=== PATIENT | female | born 1965 | race Caucasian/White ===

== ENCOUNTER 2019-06-16 15:26 | Outpatient (CLI) | payer BC ==
--- NOTE | 2019-07-14 11:30 | MMO ---
Bilateral MAMMO Bilat Screen [facility]. CLINICAL HISTORY: Patient is 54 years old and is seen for screening. The patient has no family history of breast cancer. The patient has no personal history of cancer. VIEWS: The views performed were: bilateral craniocaudal; bilateral craniocaudal with tomosynthesis; bilateral mediolateral oblique with tomosynthesis; and right mediolateral oblique. FILMS COMPARED: The present examination has been compared to a prior imaging study performed at [facility] on 05/21/2018. This study has been interpreted with the assistance of computer-aided detection. MAMMOGRAM FINDINGS: There are scattered fibroglandular densities. Benign calcifications are noted bilaterally. There are no suspicious masses, suspicious calcifications, or new areas of architectural distortion. IMPRESSION: THERE IS NO MAMMOGRAPHIC EVIDENCE OF MALIGNANCY. A ROUTINE FOLLOW-UP MAMMOGRAM IN 1 YEAR IS RECOMMENDED. THE RESULTS OF THIS EXAM WERE SENT TO THE PATIENT. ACR BI-RADS Category 2 - Benign finding MAMMOGRAPHY NOTE: 1. A negative mammogram report should not delay a biopsy if a dominant of clinically suspicious mass is present. 2. Approximately 10% to 15% of breast cancers are not detected by mammography. 3. Adenosis and dense breasts may obscure an underlying neoplasm. Reported by: ZIA PERES MD Electonically Signed: [id number]
== END 2019-06-16 15:27 | disposition home or self-care (01) ==
LOC: BICMAMMO 15:26
PROVIDERS: ATTEND Family Medicine
DX: Z12.31 Encounter for screening mammogram for malignant neoplasm of breast (principal)
CPT/HCPCS: 77063; 77067

== ENCOUNTER 2021-06-09 12:55 | Inpatient (IN) | payer BC ==
[2021-06-09 17:43] VITALS: BMI 43.8
[2021-06-09] MEDS ORDERED: Ondansetron PF 4 MG/2 ML Vial IVP PRN (18:15)
[2021-06-09] MEDS ORDERED: Lorazepam 2 MG/ML VIAL SLOW IVP PRN (18:15)
[2021-06-09] MEDS ORDERED: Ondansetron ODT 4 MG TAB PO PRN (18:15)
[2021-06-09] MEDS ORDERED: hydrALAZINE 20 MG/ML VIAL SLOW IVP PRN (18:15)
[2021-06-09] MEDS ORDERED: GoLYTELY 4,000 ml Bottle PO SCH (18:30)
[2021-06-09 19:29] LABS: SARS-CoV-2 NAA Rapid Test Not Detected (NotDetected)
[2021-06-09] MEDS: Famotidine 20 MG TAB PO SCH (21:00)
[2021-06-09] MEDS: Enoxaparin Sodium 40 MG/0.4 ML SYRINGE SC SCH (21:00)
[2021-06-09] MEDS: D5 1/2 NS w/20 mEq KCL 1,000 ML IV SCH (21:01)
[2021-06-09] MEDS: ALPRAZolam 0.25 MG TAB PO SCH (21:01)
[2021-06-10 04:58] LABS: #Eosinphils 0.1 thou/uL (0.0-0.7); #Lymphocytes 2.7 thou/uL (1.20-3.40); #Monocytes 0.5 thou/uL (0.11-0.59); #Neutrophils 3.5 thou/uL (1.40-6.50); %Basophils 0.6 % (0.0-1.0); %Eosinophils 1.8 % (0.0-10.0); %Lymphocytes 39.3 % (21.0-51.0); %Monocytes 7.1 % (0.0-10.0); %Neutrophils 51.3 % (42.0-75.0); Hemoglobin 12.8 g/dL (12.0-16.0); Mean Corpuscular HGB CONC 33.3 g/dL (32.0-36.0); Mean Corpuscular Hemoglobin 31.4 pg (27.0-31.0); Mean Corpuscular Volume 94.4 fL (78.0-98.0); Platelet Count 176 thou/uL (130-400); RBC Distribution Width 12.5 % (11.5-14.5); Red Blood Cell (RBC) Count 4.08 mill/uL (4.20-5.40); White Blood Cell (WBC) Count 6.8 thou/uL (4.8-10.8)
[2021-06-10 05:19] LABS: ALT (SGPT) 22 U/L (8-55); AST (SGOT) 19 U/L (5-34); Albumin 3.7 g/dL (3.5-5.0); Alkaline Phosphatase 93 U/L (40-110); Anion Gap 13 mmol/L (10-20); BUN (Urea Nitrogen) 9 mg/dL (9.8-20.1); Bilirubin, Total 0.6 mg/dL (0.2-1.2); Calc. Creatinine Clearance 198 mL/min (70-130); Calcium 9.1 mg/dL (7.8-10.44); Carbon Dioxide 27 mmol/L (22-29); Chloride 104 mmol/L (98-107); Globulin 3.5 g/dL (2.4-3.5); Glucose 96 mg/dL (70-105); Magnesium 1.9 mg/dL (1.6-2.6); Potassium 3.5 mmol/L (3.5-5.1); Protein, Total 7.2 g/dL (6.0-8.3); Sodium 140 mmol/L (136-145)
[2021-06-10] MEDS: D5 1/2 NS w/20 mEq KCL 1,000 ML IV SCH ×3 (08:28→18:00)
[2021-06-10] MEDS: Lisinopril 20 MG TAB PO SCH (08:28)
[2021-06-10] MEDS ORDERED: Midazolam HCl 2 mg/2 ml Vial ONE (11:11)
[2021-06-10] MEDS ORDERED: PROPOFOL 200 MG/20 ML VIAL ONE (11:20)
[2021-06-10] MEDS: Famotidine 20 MG TAB PO SCH ×2 (12:52→20:16)
[2021-06-10] MEDS: ALPRAZolam 0.25 MG TAB PO SCH ×2 (12:55→20:16)
[2021-06-10] MEDS ORDERED: Midazolam HCl 2 mg/2 ml Vial SLOW IVP SCH (13:00)
[2021-06-10] MEDS ORDERED: Meropenem 2 GM in Sodium Chloride 0.9% 100 ML IVPB SCH (14:15)
[2021-06-10] MEDS ORDERED: GoLYTELY 4,000 ml Bottle PO SCH (17:00)
[2021-06-10] MEDS: Enoxaparin Sodium 40 MG/0.4 ML SYRINGE SC SCH (20:16)
[2021-06-11] MEDS: D5 1/2 NS w/20 mEq KCL 1,000 ML IV SCH ×4 (03:05→19:10)
[2021-06-11] MEDS: ALPRAZolam 0.25 MG TAB PO SCH ×2 (11:41→20:17)
[2021-06-11] MEDS: Lisinopril 20 MG TAB PO SCH (11:41)
[2021-06-11] MEDS: Famotidine 20 MG TAB PO SCH ×2 (11:41→20:17)
[2021-06-11] MEDS ORDERED: Sodium Chloride 0.9% 100 ML ONE (12:16)
[2021-06-11] MEDS ORDERED: cefOXitin Sodium/Dextrose 2 GM/50 ML BAG ONE (12:16)
[2021-06-11] MEDS ORDERED: Fentanyl 100 MCG/2 ML VIAL ONE (13:29)
[2021-06-11] MEDS ORDERED: Dexmedetomidine 200 MCG/2 ML VIAL ONE (13:29)
[2021-06-11] MEDS ORDERED: Dexamethasone 20 MG/5 ML VIAL ONE (13:51)
[2021-06-11] MEDS ORDERED: ePHEDrine 50 MG/ML VIAL ONE (13:51)
[2021-06-11] MEDS ORDERED: Ketorolac Tromethamine 30 MG/ML VIAL ONE (13:51)
[2021-06-11] MEDS ORDERED: Rocuronium Bromide 10 MG/ML (10ML VIAL) ONE (13:51)
[2021-06-11] MEDS ORDERED: Succinylcholine 200 MG/10 ml SYRINGE FS ONE (13:51)
[2021-06-11] MEDS ORDERED: Ondansetron PF 4 MG/2 ML Vial ONE (13:51)
[2021-06-11] MEDS ORDERED: Lidocaine 1% PF 5 ML VIAL ONE (13:51)
[2021-06-11] MEDS ORDERED: PROPOFOL 200 MG/20 ML VIAL ONE (13:51)
[2021-06-11] MEDS ORDERED: HYDROmorphone 0.5 MG/0.5 ML SYRINGE ONE (16:22)
[2021-06-11] MEDS ORDERED: SUGAMMADEX SODIUM 200 MG/2 ML VIAL ONE (16:22)
[2021-06-11] MEDS ORDERED: Sodium Chloride 0.9% 30 ML ONE (16:48)
[2021-06-11] MEDS ORDERED: Ondansetron PF 4 MG/2 ML Vial IVP PRN (17:14)
[2021-06-11] MEDS ORDERED: diphenhydrAMINE 25 MG CAP PO PRN (17:14)
[2021-06-11] MEDS ORDERED: Ketorolac Tromethamine 30 MG/ML VIAL IVP PRN (17:14)
[2021-06-11] MEDS ORDERED: Promethazine HCl 25 MG/ML VIAL IVPB PRN (17:14)
[2021-06-11] MEDS ORDERED: diphenhydrAMINE 50 MG/ML VIAL IVP PRN (17:14)
[2021-06-11] MEDS ORDERED: Naloxone HCl 0.4 mg/ml Vial IV PRN (17:14)
[2021-06-11] MEDS ORDERED: Zolpidem Tartrate 5 MG TAB PO PRN (17:14)
[2021-06-11] MEDS ORDERED: Promethazine HCl 25 MG/ML VIAL IM PRN ×2 (17:14)
[2021-06-11] MEDS ORDERED: Ondansetron HCl/PF 4 MG/2 ML Vial IVP PRN (17:14)
[2021-06-11] MEDS ORDERED: fentaNYL Citrate/PF 2,000 MCG in Sodium Chloride 0.9% 60 ML IV PRN (17:14)
[2021-06-11] MEDS ORDERED: diphenhydrAMINE 50 MG/ML VIAL IM PRN (17:14)
[2021-06-11] MEDS ORDERED: Communication Order-Pharmacy FS SCH (17:15)
[2021-06-11] MEDS ORDERED: hydrALAZINE 20 MG/ML VIAL ONE (18:02)
[2021-06-11] MEDS: Enoxaparin Sodium 40 MG/0.4 ML SYRINGE SC SCH (20:16)
[2021-06-12] MEDS: D5 1/2 NS w/20 mEq KCL 1,000 ML IV SCH ×3 (03:20→13:16)
[2021-06-12 04:38] LABS: #Lymphocytes 1.1 thou/uL (1.20-3.40); #Monocytes 0.9 thou/uL (0.11-0.59); #Neutrophils 11.8 thou/uL (1.40-6.50); %Eosinophils 0.1 % (0.0-10.0); %Lymphocytes 8.2 % (21.0-51.0); %Monocytes 6.4 % (0.0-10.0); %Neutrophils 85.3 % (42.0-75.0); Hemoglobin 12.5 g/dL (12.0-16.0); Mean Corpuscular HGB CONC 33.3 g/dL (32.0-36.0); Mean Corpuscular Hemoglobin 31.5 pg (27.0-31.0); Mean Corpuscular Volume 94.7 fL (78.0-98.0); Mean Platelet Volume 8.4 fL (7.4-10.4); Platelet Count 240 thou/uL (130-400); RBC Distribution Width 12.5 % (11.5-14.5); Red Blood Cell (RBC) Count 3.96 mill/uL (4.20-5.40); White Blood Cell (WBC) Count 13.9 thou/uL (4.8-10.8)
[2021-06-12 04:57] LABS: ALT (SGPT) 43 U/L (8-55); AST (SGOT) 29 U/L (5-34); Albumin 3.1 g/dL (3.5-5.0); Alkaline Phosphatase 71 U/L (40-110); Anion Gap 14 mmol/L (10-20); BUN (Urea Nitrogen) 9 mg/dL (9.8-20.1); Bilirubin, Total 0.4 mg/dL (0.2-1.2); Calc. Creatinine Clearance 201 mL/min (70-130); Calcium 7.9 mg/dL (7.8-10.44); Carbon Dioxide 24 mmol/L (22-29); Chloride 103 mmol/L (98-107); Globulin 3.1 g/dL (2.4-3.5); Glucose 171 mg/dL (70-105); Potassium 4.1 mmol/L (3.5-5.1); Protein, Total 6.2 g/dL (6.0-8.3); Sodium 137 mmol/L (136-145)
[2021-06-12] MEDS: Lisinopril 20 MG TAB PO SCH (08:35)
[2021-06-12] MEDS: Famotidine 20 MG TAB PO SCH ×2 (08:35→20:31)
[2021-06-12] MEDS: ALPRAZolam 0.25 MG TAB PO SCH ×2 (08:35→20:30)
[2021-06-12] MEDS ORDERED: traMADol HCl 50 MG TAB PO PRN (11:45)
[2021-06-12] MEDS: Acetaminophen 500 MG TAB PO SCH ×2 (13:15→18:08)
[2021-06-12] MEDS: Enoxaparin Sodium 40 MG/0.4 ML SYRINGE SC SCH (20:30)
[2021-06-13] MEDS: Acetaminophen 500 MG TAB PO SCH ×2 (00:45→04:52)
[2021-06-13] MEDS: D5 1/2 NS w/20 mEq KCL 1,000 ML IV SCH ×2 (01:36→09:54)
[2021-06-13] MEDS: Lisinopril 20 MG TAB PO SCH (08:15)
[2021-06-13] MEDS: Famotidine 20 MG TAB PO SCH ×2 (08:16→20:32)
[2021-06-13] MEDS: ALPRAZolam 0.25 MG TAB PO SCH ×2 (08:16→20:32)
[2021-06-13] MEDS ORDERED: Fentanyl 100 MCG/2 ML VIAL SLOW IVP PRN (10:47)
[2021-06-13] MEDS ORDERED: HYDROcodone/Acetaminophen 7.5/325 mg Tablet PO PRN (10:47)
[2021-06-13] MEDS: HYDROcodone/Acetaminophen 7.5/325 mg Tablet PO PRN ×2 (12:56→18:42)
[2021-06-13] MEDS: Enoxaparin Sodium 40 MG/0.4 ML SYRINGE SC SCH (20:32)
[2021-06-14] MEDS: HYDROcodone/Acetaminophen 7.5/325 mg Tablet PO PRN ×3 (00:18→11:47)
[2021-06-14] MEDS: D5 1/2 NS w/20 mEq KCL 1,000 ML IV SCH ×2 (00:58→11:49)
[2021-06-14] MEDS: Famotidine 20 MG TAB PO SCH ×2 (07:35→20:23)
[2021-06-14] MEDS: Lisinopril 20 MG TAB PO SCH (07:35)
[2021-06-14] MEDS: ALPRAZolam 0.25 MG TAB PO SCH (07:35)
[2021-06-14] MEDS ORDERED: Ibuprofen 600 MG TAB PO PRN (16:42)
[2021-06-14] MEDS: traMADol HCl 50 MG TAB PO PRN ×2 (18:02→23:43)
[2021-06-14] MEDS: Acetaminophen 500 MG TAB PO SCH ×2 (18:02→23:44)
[2021-06-14] MEDS: Enoxaparin Sodium 40 MG/0.4 ML SYRINGE SC SCH (20:23)
[2021-06-14] MEDS: Potassium Chloride 20 MEQ TAB PO SCH (20:23)
[2021-06-15] MEDS: Acetaminophen 500 MG TAB PO SCH ×2 (05:52→12:36)
[2021-06-15] MEDS: Lisinopril 20 MG TAB PO SCH (07:53)
[2021-06-15] MEDS: traMADol HCl 50 MG TAB PO PRN ×2 (07:57→12:37)
[2021-06-15] MEDS: Potassium Chloride 20 MEQ TAB PO SCH (07:58)
[2021-06-15] MEDS: Famotidine 20 MG TAB PO SCH (07:58)
[2021-06-15] MEDS ORDERED: Multivit, Therapeutic 1 TAB PO SCH (09:00)
[2021-06-15] MEDS ORDERED: Non-Formulary Item 1 EACH (Turmeric Root Extract [Turmeric] 500 MG Capsule) PO SCH (09:00)
[2021-06-15] MEDS ORDERED: Estradiol 1 MG TAB PO SCH (09:00)
[2021-06-15] MEDS ORDERED: Hydrochlorothiazide 25 MG TAB PO SCH (09:00)
[2021-06-15 11:59] VITALS: BP 137/81; TEMP 98.8
== END 2021-06-15 16:30 | disposition home health service (06) | DRG 330 ==
LOC: SURG B 12:55
PROVIDERS: ADMIT Specialist; ATTEND Specialist
PROC: 0D7N8ZZ Dilation of Sigmoid Colon, Via Natural or Artificial Opening Endoscopic (ICD-10-PCS; principal; 2021-06-11)
PROC: 0DBG0ZZ Excision of Left Large Intestine, Open Approach (ICD-10-PCS; 2021-06-11)
PROC: 02H633Z Insertion of Infusion Device into Right Atrium, Percutaneous Approach (ICD-10-PCS; 2021-06-11)
DX: K56.609 Unspecified intestinal obstruction, unspecified as to partial versus complete obstruction (principal); Z68.41 Body mass index [BMI] 40.0-44.9, adult; E66.01 Morbid (severe) obesity due to excess calories; Z20.822 Contact with and (suspected) exposure to COVID-19; F17.210 Nicotine dependence, cigarettes, uncomplicated; I10 Essential (primary) hypertension; F32.A Depression, unspecified; Z80.0 Family history of malignant neoplasm of digestive organs; Z82.49 Family history of ischemic heart disease and other diseases of the circulatory system; Z79.899 Other long term (current) drug therapy; Z90.49 Acquired absence of other specified parts of digestive tract; Z90.710 Acquired absence of both cervix and uterus; Z90.722 Acquired absence of ovaries, bilateral
CPT/HCPCS: 36415; 71045; 71046; 74019; 80053; 82378; 83735; 85025; 88307; 93005; 93010; 93306; A4649; C1776; J0360; J0694; J1100; J1170; J1650; J1885; J2250; J2405; J2704; J3010; J3480; J3490; J7620; U0002

== ENCOUNTER 2021-06-22 07:52 | Inpatient (IN) | payer BC ==
[2021-06-22] MEDS ORDERED: Piperacillin/Tazobactam 4.5 GM VIAL ONE (08:22)
[2021-06-22 08:49] LABS: Hemoglobin 10.8 g/dL (12.0-16.0); Mean Corpuscular HGB CONC 32.4 g/dL (32.0-36.0); Mean Corpuscular Hemoglobin 29.7 pg (27.0-31.0); Mean Corpuscular Volume 91.5 fL (78.0-98.0); Mean Platelet Volume 8.1 fL (7.4-10.4); Platelet Count 565 thou/uL (130-400); RBC Distribution Width 13.2 % (11.5-14.5); Red Blood Cell (RBC) Count 3.63 mill/uL (4.20-5.40); White Blood Cell (WBC) Count 21.5 thou/uL (4.8-10.8)
[2021-06-22] MEDS ORDERED: Vancomycin HCl 1.75 GM in Sodium Chloride 0.9% 500 ML IVPB SCH (09:00)
[2021-06-22 09:10] LABS: ALT (SGPT) 32 U/L (8-55); AST (SGOT) 14 U/L (5-34); Albumin 3.8 g/dL (3.5-5.0); Alkaline Phosphatase 109 U/L (40-110); Anion Gap 24 mmol/L (10-20); BUN (Urea Nitrogen) 69 mg/dL (9.8-20.1); Bilirubin, Total 0.3 mg/dL (0.2-1.2); Calc. Creatinine Clearance 15 mL/min (70-130); Calcium 9.4 mg/dL (7.8-10.44); Carbon Dioxide 14 mmol/L (22-29); Chloride 95 mmol/L (98-107); Globulin 3.8 g/dL (2.4-3.5); Glucose 117 mg/dL (70-105); Lipase 19 U/L (8-78); Potassium 6.2 mmol/L (3.5-5.1); Protein, Total 7.6 g/dL (6.0-8.3); Sodium 127 mmol/L (136-145)
[2021-06-22 09:14] LABS: Band 7 % (5-11); Eosinophils 3 % (0-10); Lymphocytes 16 % (21-51); MDiff Complete? YES; Metamyelocyte 1 % (0-0); Monocytes 4 % (0-10); Neutrophil 69 % (42-75); Platelet Morphology Comment Appears Increased; Polychromasia SLIGHT = 2-3 cells (100X) (0-2/hpf)
[2021-06-22] MEDS ORDERED: Sodium Bicarb 50 MEQ/50 ML Abboject 8.4% SYRINGE ONE (10:11)
[2021-06-22] MEDS ORDERED: Dextrose 50% Abboject 50 ML SYRINGE ONE (10:11)
[2021-06-22] MEDS ORDERED: Insulin Regular 300 UNITS/3 ML VIAL ONE (10:11)
[2021-06-22 11:31] LABS: SARS-CoV-2 NAA Rapid Test Not Detected (NotDetected)
[2021-06-22] MEDS: Sodium Bicarbonate 150 MEQ in Dextrose 5% in Water 1,000 ML IV SCH ×2 (11:53→19:54)
[2021-06-22] MEDS ORDERED: Calcium Gluc 4.6 MEQ/10 ML (100 MG/ML) ONE (12:11)
[2021-06-22] MEDS ORDERED: hydrALAZINE 20 MG/ML VIAL SLOW IVP PRN (12:20)
[2021-06-22] MEDS ORDERED: Ondansetron ODT 4 MG TAB PO PRN (12:20)
[2021-06-22] MEDS ORDERED: Ondansetron PF 4 MG/2 ML Vial IVP PRN (12:20)
[2021-06-22] MEDS ORDERED: Lorazepam 2 MG/ML VIAL SLOW IVP PRN (12:20)
[2021-06-22] MEDS ORDERED: traMADol HCl 50 MG TAB PO PRN (12:23)
[2021-06-22 12:51] LABS: Anion Gap 19 mmol/L (10-20); BUN (Urea Nitrogen) 59 mg/dL (9.8-20.1); Calc. Creatinine Clearance 20 mL/min (70-130); Calcium 8.6 mg/dL (7.8-10.44); Carbon Dioxide 13 mmol/L (22-29); Chloride 104 mmol/L (98-107); Glucose 116 mg/dL (70-105); Potassium 4.9 mmol/L (3.5-5.1); Sodium 131 mmol/L (136-145)
[2021-06-22 12:56] LABS: Troponin I 0.011 ng/mL (< 0.028)
[2021-06-22 13:04] LABS: Bilirubin Negative (Negative); Blood, Urine 1+ (Negative); Clarity Turbid (Clear); Glucose, Urine (Dipstick) Normal (Negative); Ketone, Urine Negative (Negative); Leukocyte Negative Leu/uL (Negative); Nitrite Negative (Negative); Protein, Urine (Dipstick) 30 mg/dL (Neg-Trace); RBC/HPF 0-3 HPF (0-3); Specific Gravity, Urine 1.012 (1.002-1.036); Squamous Epithelial 0-3 HPF (0-3); Urobilinogen Normal mg/dL (Less than 2); WBC/HPF 0-3 HPF (0-3); Yeast-Budding 2+ HPF (None Seen)
[2021-06-22 13:14] LABS: Bacteria/HPF 1+ HPF (None Seen)
[2021-06-22] MEDS: Sodium Chloride 0.9% 1,000 ML IV SCH (14:00)
[2021-06-22 14:55] LABS: Troponin I 0.016 ng/mL (< 0.028)
[2021-06-22] MEDS ORDERED: Morphine 4 MG/ML VIAL ONE (16:36)
[2021-06-22] MEDS ORDERED: Acetaminophen 500 MG TAB ONE (16:39)
[2021-06-22] MEDS: Acetaminophen 500 MG TAB PO SCH (16:42)
[2021-06-22] MEDS ORDERED: Enoxaparin Sodium 30 MG/0.3 ML SYRINGE SC SCH (21:00)
[2021-06-22] MEDS: Morphine 4 MG/ML VIAL SLOW IVP PRN (21:27)
[2021-06-22] MEDS: Famotidine 20 MG TAB PO SCH (22:09)
[2021-06-22] MEDS: ALPRAZolam 0.25 MG TAB PO SCH (22:09)
[2021-06-23] MEDS: Sodium Bicarbonate 150 MEQ in Dextrose 5% in Water 1,000 ML IV SCH (04:51)
[2021-06-23] MEDS: Acetaminophen 500 MG TAB PO SCH ×5 (06:09→23:14)
[2021-06-23 07:08] LABS: #Basophils 0.1 thou/uL (0.0-0.2); #Eosinphils 0.6 thou/uL (0.0-0.7); #Lymphocytes 2.3 thou/uL (1.20-3.40); #Monocytes 0.7 thou/uL (0.11-0.59); #Neutrophils 6.6 thou/uL (1.40-6.50); %Basophils 0.8 % (0.0-1.0); %Eosinophils 6.1 % (0.0-10.0); %Lymphocytes 22.4 % (21.0-51.0); %Monocytes 6.8 % (0.0-10.0); %Neutrophils 63.9 % (42.0-75.0); Hemoglobin 8.8 g/dL (12.0-16.0); Mean Corpuscular HGB CONC 34.6 g/dL (32.0-36.0); Mean Corpuscular Hemoglobin 31.6 pg (27.0-31.0); Mean Corpuscular Volume 91.4 fL (78.0-98.0); Mean Platelet Volume 7.6 fL (7.4-10.4); Platelet Count 351 thou/uL (130-400); RBC Distribution Width 12.8 % (11.5-14.5); Red Blood Cell (RBC) Count 2.77 mill/uL (4.20-5.40); White Blood Cell (WBC) Count 10.3 thou/uL (4.8-10.8)
[2021-06-23 07:17] LABS: ALT (SGPT) 25 U/L (8-55); AST (SGOT) 16 U/L (5-34); Albumin 2.8 g/dL (3.5-5.0); Alkaline Phosphatase 76 U/L (40-110); Anion Gap 10 mmol/L (10-20); BUN (Urea Nitrogen) 39 mg/dL (9.8-20.1); Bilirubin, Total Less than 0.2 mg/dL (0.2-1.2); Calc. Creatinine Clearance 93 mL/min (70-130); Calcium 8.8 mg/dL (7.8-10.44); Carbon Dioxide 30 mmol/L (22-29); Chloride 99 mmol/L (98-107); Globulin 3.5 g/dL (2.4-3.5); Glucose 110 mg/dL (70-105); Potassium 4.4 mmol/L (3.5-5.1); Protein, Total 6.3 g/dL (6.0-8.3); Sodium 135 mmol/L (136-145)
[2021-06-23] MEDS: ALPRAZolam 0.25 MG TAB PO SCH ×2 (09:55→21:08)
[2021-06-23] MEDS: Sodium Chloride 0.9% 1,000 ML IV SCH ×2 (09:57→16:32)
[2021-06-23] MEDS: Morphine 4 MG/ML VIAL SLOW IVP PRN (15:06)
[2021-06-23] MEDS: Enoxaparin Sodium 40 MG/0.4 ML SYRINGE SC SCH (21:08)
[2021-06-23] MEDS: Famotidine 20 MG TAB PO SCH (21:08)
[2021-06-24] MEDS ORDERED: traMADol HCl 50 MG TAB PO PRN ×2 (01:00→03:34)
[2021-06-24] MEDS ORDERED: traMADol HCl 50 MG TAB PO SCH ×2 (01:00→06:00)
[2021-06-24] MEDS: Acetaminophen 500 MG TAB PO SCH ×3 (04:20→18:00)
[2021-06-24 04:45] LABS: #Basophils 0.1 thou/uL (0.0-0.2); #Eosinphils 0.5 thou/uL (0.0-0.7); #Lymphocytes 2.7 thou/uL (1.20-3.40); #Monocytes 0.6 thou/uL (0.11-0.59); #Neutrophils 5.1 thou/uL (1.40-6.50); %Basophils 0.7 % (0.0-1.0); %Eosinophils 5.7 % (0.0-10.0); %Lymphocytes 29.9 % (21.0-51.0); %Neutrophils 56.7 % (42.0-75.0); Hemoglobin 8.5 g/dL (12.0-16.0); Mean Corpuscular HGB CONC 33.6 g/dL (32.0-36.0); Mean Corpuscular Hemoglobin 31.2 pg (27.0-31.0); Mean Corpuscular Volume 92.7 fL (78.0-98.0); Mean Platelet Volume 7.2 fL (7.4-10.4); Platelet Count 337 thou/uL (130-400); RBC Distribution Width 12.6 % (11.5-14.5); Red Blood Cell (RBC) Count 2.71 mill/uL (4.20-5.40)
[2021-06-24] MEDS: Sodium Chloride 0.9% 1,000 ML IV SCH ×2 (04:53→20:10)
[2021-06-24 05:17] LABS: ALT (SGPT) 26 U/L (8-55); AST (SGOT) 13 U/L (5-34); Alkaline Phosphatase 76 U/L (40-110); Anion Gap 13 mmol/L (10-20); BUN (Urea Nitrogen) 24 mg/dL (9.8-20.1); Bilirubin, Total Less than 0.2 mg/dL (0.2-1.2); Calc. Creatinine Clearance 159 mL/min (70-130); Calcium 8.8 mg/dL (7.8-10.44); Carbon Dioxide 27 mmol/L (22-29); Chloride 101 mmol/L (98-107); Globulin 3.3 g/dL (2.4-3.5); Glucose 88 mg/dL (70-105); Potassium 4.6 mmol/L (3.5-5.1); Protein, Total 6.3 g/dL (6.0-8.3); Sodium 136 mmol/L (136-145)
[2021-06-24] MEDS: Morphine 4 MG/ML VIAL SLOW IVP PRN ×2 (05:31→12:41)
[2021-06-24] MEDS: ALPRAZolam 0.25 MG TAB PO SCH ×2 (09:19→20:09)
[2021-06-24] MEDS: Famotidine 20 MG TAB PO SCH (20:09)
[2021-06-24] MEDS: Enoxaparin Sodium 40 MG/0.4 ML SYRINGE SC SCH (20:09)
[2021-06-25] MEDS: Acetaminophen 500 MG TAB PO SCH ×4 (00:23→17:34)
[2021-06-25] MEDS: Morphine 4 MG/ML VIAL SLOW IVP PRN ×2 (03:59→09:41)
[2021-06-25 04:01] LABS: #Basophils 0.1 thou/uL (0.0-0.2); #Eosinphils 0.7 thou/uL (0.0-0.7); #Lymphocytes 2.3 thou/uL (1.20-3.40); #Monocytes 0.5 thou/uL (0.11-0.59); #Neutrophils 5.4 thou/uL (1.40-6.50); %Basophils 0.9 % (0.0-1.0); %Eosinophils 8.1 % (0.0-10.0); %Lymphocytes 25.4 % (21.0-51.0); %Monocytes 5.5 % (0.0-10.0); %Neutrophils 60.1 % (42.0-75.0); Hemoglobin 9.5 g/dL (12.0-16.0); Mean Corpuscular HGB CONC 33.2 g/dL (32.0-36.0); Mean Corpuscular Hemoglobin 30.9 pg (27.0-31.0); Mean Corpuscular Volume 93.1 fL (78.0-98.0); Mean Platelet Volume 7.1 fL (7.4-10.4); Platelet Count 391 thou/uL (130-400); RBC Distribution Width 12.5 % (11.5-14.5); Red Blood Cell (RBC) Count 3.09 mill/uL (4.20-5.40)
[2021-06-25 04:17] LABS: ALT (SGPT) 24 U/L (8-55); AST (SGOT) 12 U/L (5-34); Albumin 3.3 g/dL (3.5-5.0); Alkaline Phosphatase 90 U/L (40-110); Anion Gap 13 mmol/L (10-20); BUN (Urea Nitrogen) 15 mg/dL (9.8-20.1); Bilirubin, Total Less than 0.2 mg/dL (0.2-1.2); Calc. Creatinine Clearance 168 mL/min (70-130); Calcium 9.5 mg/dL (7.8-10.44); Carbon Dioxide 27 mmol/L (22-29); Chloride 101 mmol/L (98-107); Globulin 3.9 g/dL (2.4-3.5); Glucose 113 mg/dL (70-105); Potassium 4.3 mmol/L (3.5-5.1); Protein, Total 7.2 g/dL (6.0-8.3); Sodium 137 mmol/L (136-145)
[2021-06-25] MEDS: ALPRAZolam 0.25 MG TAB PO SCH ×2 (08:20→21:06)
[2021-06-25] MEDS: Sodium Chloride 0.9% 1,000 ML IV SCH ×2 (08:21→21:06)
[2021-06-25] MEDS: Nystatin Powder 15 GM BOT TOP PRN ×2 (12:35→17:45)
[2021-06-25] MEDS ORDERED: FLU VACC QS2021-22(6MOS UP)/PF 60 MCG/0.5 ML SYRINGE IM ONE (18:30)
[2021-06-25] MEDS: Famotidine 20 MG TAB PO SCH (21:06)
[2021-06-25] MEDS: Enoxaparin Sodium 40 MG/0.4 ML SYRINGE SC SCH (21:07)
[2021-06-26] MEDS: Acetaminophen 500 MG TAB PO SCH ×5 (00:05→23:46)
[2021-06-26] MEDS ORDERED: ceFAZolin Sodium/D5W 2 GM in Premix Bag 1 BAG IVPB SCH (05:00)
[2021-06-26 05:40] LABS: #Basophils 0.1 thou/uL (0.0-0.2); #Eosinphils 0.9 thou/uL (0.0-0.7); #Monocytes 0.6 thou/uL (0.11-0.59); %Basophils 0.9 % (0.0-1.0); %Eosinophils 9.1 % (0.0-10.0); %Lymphocytes 31.5 % (21.0-51.0); %Monocytes 6.5 % (0.0-10.0); Hemoglobin 9.5 g/dL (12.0-16.0); Mean Corpuscular HGB CONC 32.7 g/dL (32.0-36.0); Mean Corpuscular Hemoglobin 30.4 pg (27.0-31.0); Mean Platelet Volume 7.4 fL (7.4-10.4); Platelet Count 394 thou/uL (130-400); RBC Distribution Width 12.5 % (11.5-14.5); Red Blood Cell (RBC) Count 3.11 mill/uL (4.20-5.40); White Blood Cell (WBC) Count 9.5 thou/uL (4.8-10.8)
[2021-06-26] MEDS: Nystatin Powder 15 GM BOT TOP PRN ×2 (05:55→11:13)
[2021-06-26 06:02] LABS: ALT (SGPT) 23 U/L (8-55); AST (SGOT) 11 U/L (5-34); Albumin 3.2 g/dL (3.5-5.0); Alkaline Phosphatase 86 U/L (40-110); Anion Gap 13 mmol/L (10-20); BUN (Urea Nitrogen) 14 mg/dL (9.8-20.1); Bilirubin, Total 0.2 mg/dL (0.2-1.2); Calc. Creatinine Clearance 163 mL/min (70-130); Calcium 9.1 mg/dL (7.8-10.44); Carbon Dioxide 23 mmol/L (22-29); Chloride 106 mmol/L (98-107); Globulin 3.7 g/dL (2.4-3.5); Glucose 90 mg/dL (70-105); Potassium 4.5 mmol/L (3.5-5.1); Protein, Total 6.9 g/dL (6.0-8.3); Sodium 137 mmol/L (136-145)
[2021-06-26] MEDS ORDERED: ceFAZolin 2 GM/DEX 5% 100 ML BAG ONE (06:31)
[2021-06-26] MEDS ORDERED: PROPOFOL 40 ML ONE (06:52)
[2021-06-26] MEDS ORDERED: Fentanyl 100 MCG/2 ML VIAL ONE ×2 (06:52→09:09)
[2021-06-26] MEDS ORDERED: Lidocaine 1% w/Epinephrine 1:100K 30 ML VIAL ONE (06:58)
[2021-06-26] MEDS ORDERED: Bupivacaine PF 0.5% 30 ML VIAL ONE (06:58)
[2021-06-26] MEDS ORDERED: Sodium Chloride 0.9% 20 ML ONE (06:58)
[2021-06-26] MEDS ORDERED: Midazolam HCl 2 mg/2 ml Vial ONE (07:58)
[2021-06-26] MEDS ORDERED: PROPOFOL 200 MG/20 ML VIAL ONE (08:09)
[2021-06-26] MEDS ORDERED: Promethazine HCl 25 MG/ML VIAL IVPB PRN (08:33)
[2021-06-26] MEDS ORDERED: Promethazine HCl 25 MG/ML VIAL IM PRN (08:33)
[2021-06-26] MEDS ORDERED: Ondansetron HCl/PF 4 MG/2 ML Vial IVP PRN (08:33)
[2021-06-26] MEDS ORDERED: Propofol 500 MG/50 ML VIAL ONE (09:09)
[2021-06-26] MEDS ORDERED: Ketamine 50 MG/ML (10ML VIAL) ONE (09:09)
[2021-06-26] MEDS: Sodium Chloride 0.9% 1,000 ML IV SCH ×2 (10:03→23:45)
[2021-06-26] MEDS: ALPRAZolam 0.25 MG TAB PO SCH ×2 (10:03→21:10)
[2021-06-26] MEDS: Morphine 4 MG/ML VIAL SLOW IVP PRN ×3 (11:10→21:30)
[2021-06-26] MEDS: Diphenoxylate HCl/Atropine Tablet PO SCH ×2 (15:26→21:10)
[2021-06-26] MEDS: Famotidine 20 MG TAB PO SCH (21:10)
[2021-06-26] MEDS: Enoxaparin Sodium 40 MG/0.4 ML SYRINGE SC SCH (21:10)
[2021-06-27 00:57] VITALS: BMI 39.7
[2021-06-27 03:51] VITALS: TEMP 98
[2021-06-27] MEDS: Acetaminophen 500 MG TAB PO SCH ×2 (06:43→14:27)
[2021-06-27] MEDS: Diphenoxylate HCl/Atropine Tablet PO SCH (08:48)
[2021-06-27] MEDS: ALPRAZolam 0.25 MG TAB PO SCH (08:48)
[2021-06-27 12:52] VITALS: BP 128/89
== END 2021-06-27 14:14 | disposition home health service (06) | DRG 683 ==
LOC: ERS 07:52 → ERHOLD 09:58 → IMCU/EMU 17:53 → SURG A 06-23 17:24
PROVIDERS: ADMIT Emergency Medicine; ATTEND Specialist
PROC: 02H633Z Insertion of Infusion Device into Right Atrium, Percutaneous Approach (ICD-10-PCS; principal; 2021-06-22)
PROC: 02HV33Z Insertion of Infusion Device into Superior Vena Cava, Percutaneous Approach (ICD-10-PCS; 2021-06-26)
PROC: B5181ZA Fluoroscopy of Superior Vena Cava using Low Osmolar Contrast, Guidance (ICD-10-PCS; 2021-06-26)
PROC: B548ZZA Ultrasonography of Superior Vena Cava, Guidance (ICD-10-PCS; 2021-06-26)
DX: N17.9 Acute kidney failure, unspecified (principal); E87.1 Hypo-osmolality and hyponatremia; Z20.822 Contact with and (suspected) exposure to COVID-19; E87.2 Acidosis; E66.01 Morbid (severe) obesity due to excess calories; E86.0 Dehydration; F32.A Depression, unspecified; E87.5 Hyperkalemia; I12.9 Hypertensive chronic kidney disease with stage 1 through stage 4 chronic kidney disease, or unspecified chronic kidney disease; F41.9 Anxiety disorder, unspecified; F17.210 Nicotine dependence, cigarettes, uncomplicated; N18.30 Chronic kidney disease, stage 3 unspecified; D63.1 Anemia in chronic kidney disease; L30.9 Dermatitis, unspecified; Z68.41 Body mass index [BMI] 40.0-44.9, adult; Z88.8 Allergy status to other drugs, medicaments and biological substances; Z79.899 Other long term (current) drug therapy; Z93.2 Ileostomy status; Z90.710 Acquired absence of both cervix and uterus; Z90.49 Acquired absence of other specified parts of digestive tract
CPT/HCPCS: 36415; 71045; 74176; 80053; 81003; 81015; 83605; 83690; 84484; 85025; 87040; 87086; 93005; J0610; J1642; J1650; J1815; J2250; J2270; J2543; J2704; J3010; J3370; J7030; J7050; J7070; S0020; U0002

== ENCOUNTER 2021-07-06 18:20 | Inpatient (IN) | payer BC ==
[2021-07-06 19:20] LABS: #Eosinphils 0.1 thou/uL (0.0-0.7); #Lymphocytes 2.4 thou/uL (1.20-3.40); #Monocytes 0.8 thou/uL (0.11-0.59); %Basophils 0.4 % (0.0-1.0); %Eosinophils 1.5 % (0.0-10.0); %Monocytes 8.6 % (0.0-10.0); %Neutrophils 63.6 % (42.0-75.0); Hemoglobin 10.3 g/dL (12.0-16.0); Mean Corpuscular HGB CONC 34.1 g/dL (32.0-36.0); Mean Corpuscular Hemoglobin 31.2 pg (27.0-31.0); Mean Corpuscular Volume 91.6 fL (78.0-98.0); Mean Platelet Volume 7.8 fL (7.4-10.4); Platelet Count 258 thou/uL (130-400); RBC Distribution Width 14.2 % (11.5-14.5); Red Blood Cell (RBC) Count 3.29 mill/uL (4.20-5.40); White Blood Cell (WBC) Count 9.4 thou/uL (4.8-10.8)
[2021-07-06 19:31] LABS: ALT (SGPT) 15 U/L (8-55); AST (SGOT) 10 U/L (5-34); Albumin 3.7 g/dL (3.5-5.0); Alkaline Phosphatase 100 U/L (40-110); Anion Gap 21 mmol/L (10-20); BUN (Urea Nitrogen) 59 mg/dL (9.8-20.1); Bilirubin, Total 0.2 mg/dL (0.2-1.2); Calc. Creatinine Clearance 0 mL/min (70-130); Calcium 9.4 mg/dL (7.8-10.44); Carbon Dioxide 11 mmol/L (22-29); Chloride 109 mmol/L (98-107); Globulin 3.8 g/dL (2.4-3.5); Glucose 106 mg/dL (70-105); Potassium 4.6 mmol/L (3.5-5.1); Protein, Total 7.5 g/dL (6.0-8.3); Sodium 136 mmol/L (136-145)
[2021-07-06] MEDS ORDERED: diphenhydrAMINE 50 MG/ML VIAL ONE (19:41)
[2021-07-06] MEDS ORDERED: Sodium Bicarbonate 2.5 MEQ/5 ML VIAL ONE (19:41)
[2021-07-06] MEDS ORDERED: Sodium Bicarb 50 MEQ/50 ML Abboject 8.4% SYRINGE ONE ×2 (19:51→19:52)
[2021-07-06] MEDS ORDERED: Metoclopramide HCl 10 MG/2 ML VIAL ONE (20:37)
[2021-07-06] MEDS ORDERED: Ondansetron PF 4 MG/2 ML Vial IVP PRN (22:15)
[2021-07-06] MEDS ORDERED: Ondansetron ODT 4 MG TAB SL PRN (22:15)
[2021-07-06] MEDS ORDERED: Acetaminophen 325 MG TAB PO PRN (22:15)
[2021-07-06 22:41] LABS: SARS-CoV-2 NAA Rapid Test Not Detected (NotDetected)
[2021-07-06] MEDS: Loperamide HCl 2 MG CAP PO SCH (23:54)
[2021-07-07] MEDS: Loperamide HCl 2 MG CAP PO SCH ×4 (01:50→21:35)
[2021-07-07] MEDS ORDERED: Sodium Bicarbonate 150 MEQ in Dextrose 5% in Water 1,000 ML IV SCH (02:15)
[2021-07-07 03:37] LABS: #Eosinphils 0.2 thou/uL (0.0-0.7); #Monocytes 0.7 thou/uL (0.11-0.59); #Neutrophils 3.9 thou/uL (1.40-6.50); %Basophils 0.7 % (0.0-1.0); %Eosinophils 3.1 % (0.0-10.0); %Monocytes 9.8 % (0.0-10.0); %Neutrophils 57.4 % (42.0-75.0); Hemoglobin 8.8 g/dL (12.0-16.0); Mean Corpuscular HGB CONC 35.2 g/dL (32.0-36.0); Mean Corpuscular Hemoglobin 32.1 pg (27.0-31.0); Mean Corpuscular Volume 91.4 fL (78.0-98.0); Mean Platelet Volume 7.5 fL (7.4-10.4); Platelet Count 195 thou/uL (130-400); Red Blood Cell (RBC) Count 2.75 mill/uL (4.20-5.40); White Blood Cell (WBC) Count 6.9 thou/uL (4.8-10.8)
[2021-07-07 03:50] LABS: ALT (SGPT) 13 U/L (8-55); AST (SGOT) 8 U/L (5-34); Albumin 2.9 g/dL (3.5-5.0); Alkaline Phosphatase 86 U/L (40-110); Anion Gap 15 mmol/L (10-20); BUN (Urea Nitrogen) 58 mg/dL (9.8-20.1); Bilirubin, Total 0.2 mg/dL (0.2-1.2); Calc. Creatinine Clearance 24 mL/min (70-130); Calcium 8.4 mg/dL (7.8-10.44); Carbon Dioxide 14 mmol/L (22-29); Chloride 112 mmol/L (98-107); Globulin 2.9 g/dL (2.4-3.5); Glucose 110 mg/dL (70-105); Potassium 4.2 mmol/L (3.5-5.1); Protein, Total 5.8 g/dL (6.0-8.3); Sodium 137 mmol/L (136-145)
[2021-07-07] MEDS: Heparin 5,000 UNITS/ML VIAL SC SCH ×3 (09:21→21:35)
[2021-07-07] MEDS: Sodium Chloride 0.9% 1,000 ML IV SCH ×2 (13:54→21:34)
[2021-07-07 16:44] LABS: Anion Gap 15 mmol/L (10-20); BUN (Urea Nitrogen) 55 mg/dL (9.8-20.1); Calc. Creatinine Clearance 38 mL/min (70-130); Calcium 8.8 mg/dL (7.8-10.44); Carbon Dioxide 17 mmol/L (22-29); Chloride 110 mmol/L (98-107); Glucose 83 mg/dL (70-105); Sodium 138 mmol/L (136-145)
[2021-07-08 04:01] LABS: Anion Gap 16 mmol/L (10-20); BUN (Urea Nitrogen) 45 mg/dL (9.8-20.1); Calc. Creatinine Clearance 52 mL/min (70-130); Calcium 7.9 mg/dL (7.8-10.44); Carbon Dioxide 10 mmol/L (22-29); Chloride 110 mmol/L (98-107); Glucose 104 mg/dL (70-105); Potassium 4.2 mmol/L (3.5-5.1); Sodium 132 mmol/L (136-145)
[2021-07-08] MEDS: Sodium Chloride 0.9% 1,000 ML IV SCH (06:01)
[2021-07-08 07:22] LABS: Hemoglobin 8.4 g/dL (12.0-16.0); Mean Corpuscular HGB CONC 34.4 g/dL (32.0-36.0); Mean Corpuscular Hemoglobin 31.6 pg (27.0-31.0); Mean Corpuscular Volume 91.7 fL (78.0-98.0); Mean Platelet Volume 8.1 fL (7.4-10.4); Platelet Count 172 thou/uL (130-400); Red Blood Cell (RBC) Count 2.66 mill/uL (4.20-5.40); White Blood Cell (WBC) Count 4.1 thou/uL (4.8-10.8)
[2021-07-08 08:36] LABS: Band 10 % (5-11); Lymphocytes 25 % (21-51); MDiff Complete? YES; Monocytes 19 % (0-10); Neutrophil 46 % (42-75)
[2021-07-08] MEDS ORDERED: Sodium Bicarbonate 150 MEQ in Dextrose 5% in Water 1,000 ML IV SCH ×2 (08:45→23:59)
[2021-07-08] MEDS: Loperamide HCl 2 MG CAP PO SCH ×4 (09:56→21:00)
[2021-07-08] MEDS: Heparin 5,000 UNITS/ML VIAL SC SCH ×3 (09:56→21:00)
[2021-07-09 04:35] LABS: Anion Gap 16 mmol/L (10-20); BUN (Urea Nitrogen) 32 mg/dL (9.8-20.1); Calc. Creatinine Clearance 95 mL/min (70-130); Calcium 8.2 mg/dL (7.8-10.44); Carbon Dioxide 19 mmol/L (22-29); Chloride 107 mmol/L (98-107); Glucose 99 mg/dL (70-105); Potassium 3.8 mmol/L (3.5-5.1); Sodium 138 mmol/L (136-145)
[2021-07-09 04:47] LABS: Band 2 % (5-11); Eosinophils 1 % (0-10); Hemoglobin 9.1 g/dL (12.0-16.0); Lymphocytes 50 % (21-51); MDiff Complete? YES; Mean Corpuscular HGB CONC 34.7 g/dL (32.0-36.0); Mean Corpuscular Hemoglobin 31.6 pg (27.0-31.0); Mean Corpuscular Volume 91.1 fL (78.0-98.0); Mean Platelet Volume 7.7 fL (7.4-10.4); Monocytes 8 % (0-10); Neutrophil 39 % (42-75); Platelet Count 167 thou/uL (130-400); RBC Distribution Width 13.9 % (11.5-14.5); Red Blood Cell (RBC) Count 2.87 mill/uL (4.20-5.40); White Blood Cell (WBC) Count 4.4 thou/uL (4.8-10.8)
[2021-07-09] MEDS ORDERED: Loperamide HCl 2 MG CAP PO SCH (08:45)
[2021-07-09] MEDS: Heparin 5,000 UNITS/ML VIAL SC SCH ×3 (09:29→21:07)
[2021-07-09] MEDS: Loperamide HCl 2 MG CAP PO SCH ×2 (13:08→17:01)
[2021-07-10 04:34] LABS: Anion Gap 14 mmol/L (10-20); BUN (Urea Nitrogen) 19 mg/dL (9.8-20.1); Calc. Creatinine Clearance 130 mL/min (70-130); Calcium 8.5 mg/dL (7.8-10.44); Carbon Dioxide 25 mmol/L (22-29); Chloride 106 mmol/L (98-107); Glucose 87 mg/dL (70-105); Potassium 4.2 mmol/L (3.5-5.1); Sodium 141 mmol/L (136-145)
[2021-07-10 07:17] LABS: #Eosinphils 0.1 thou/uL (0.0-0.7); #Lymphocytes 2.1 thou/uL (1.20-3.40); #Monocytes 0.4 thou/uL (0.11-0.59); #Neutrophils 1.7 thou/uL (1.40-6.50); %Basophils 0.2 % (0.0-1.0); %Lymphocytes 49.1 % (21.0-51.0); %Monocytes 9.5 % (0.0-10.0); %Neutrophils 38.2 % (42.0-75.0); Hemoglobin 9.8 g/dL (12.0-16.0); Mean Corpuscular HGB CONC 33.1 g/dL (32.0-36.0); Mean Corpuscular Hemoglobin 30.6 pg (27.0-31.0); Mean Corpuscular Volume 92.3 fL (78.0-98.0); Mean Platelet Volume 8.9 fL (7.4-10.4); Platelet Count 163 thou/uL (130-400); RBC Distribution Width 13.6 % (11.5-14.5); White Blood Cell (WBC) Count 4.3 thou/uL (4.8-10.8)
[2021-07-10] MEDS: Acetaminophen 325 MG TAB PO PRN (09:07)
[2021-07-10] MEDS: Heparin 5,000 UNITS/ML VIAL SC SCH ×3 (09:07→20:54)
[2021-07-10] MEDS: Loperamide HCl 2 MG CAP PO SCH ×3 (09:07→16:35)
[2021-07-11 08:59] LABS: Anion Gap 15 mmol/L (10-20); BUN (Urea Nitrogen) 12 mg/dL (9.8-20.1); Calc. Creatinine Clearance 131 mL/min (70-130); Calcium 9.1 mg/dL (7.8-10.44); Carbon Dioxide 23 mmol/L (22-29); Chloride 106 mmol/L (98-107); Glucose 90 mg/dL (70-105); Potassium 4.4 mmol/L (3.5-5.1); Sodium 140 mmol/L (136-145)
[2021-07-11] MEDS: Loperamide HCl 2 MG CAP PO SCH ×3 (09:14→17:00)
[2021-07-11] MEDS: Acetaminophen 325 MG TAB PO PRN (09:14)
[2021-07-11] MEDS: Heparin 5,000 UNITS/ML VIAL SC SCH ×3 (09:14→20:26)
[2021-07-11 09:27] LABS: #Eosinphils 0.2 thou/uL (0.0-0.7); #Lymphocytes 1.6 thou/uL (1.20-3.40); #Monocytes 0.4 thou/uL (0.11-0.59); #Neutrophils 1.8 thou/uL (1.40-6.50); %Basophils 0.5 % (0.0-1.0); %Eosinophils 4.1 % (0.0-10.0); %Lymphocytes 40.6 % (21.0-51.0); %Monocytes 9.4 % (0.0-10.0); %Neutrophils 45.4 % (42.0-75.0); Hemoglobin 9.8 g/dL (12.0-16.0); Mean Corpuscular HGB CONC 33.6 g/dL (32.0-36.0); Mean Corpuscular Hemoglobin 30.5 pg (27.0-31.0); Mean Corpuscular Volume 90.9 fL (78.0-98.0); Mean Platelet Volume 8.8 fL (7.4-10.4); Platelet Count 177 thou/uL (130-400); RBC Distribution Width 13.5 % (11.5-14.5)
[2021-07-12 04:41] LABS: Hemoglobin 10.2 g/dL (12.0-16.0); Mean Corpuscular HGB CONC 35.4 g/dL (32.0-36.0); Mean Corpuscular Hemoglobin 32.1 pg (27.0-31.0); Mean Corpuscular Volume 90.7 fL (78.0-98.0); Mean Platelet Volume 8.3 fL (7.4-10.4); Platelet Count 175 thou/uL (130-400); RBC Distribution Width 13.4 % (11.5-14.5); Red Blood Cell (RBC) Count 3.17 mill/uL (4.20-5.40)
[2021-07-12 04:42] LABS: Anion Gap 15 mmol/L (10-20); BUN (Urea Nitrogen) 12 mg/dL (9.8-20.1); Band 1 % (5-11); Calc. Creatinine Clearance 120 mL/min (70-130); Calcium 9.3 mg/dL (7.8-10.44); Carbon Dioxide 23 mmol/L (22-29); Chloride 104 mmol/L (98-107); Glucose 104 mg/dL (70-105); Hypochromia SLIGHT = 6-15 cells (100X) (0-5/hpf); Lymphocytes 35 % (21-51); MDiff Complete? YES; Monocytes 2 % (0-10); Neutrophil 62 % (42-75); Platelet Morphology Comment Appears Adequate; Potassium 3.8 mmol/L (3.5-5.1); Sodium 138 mmol/L (136-145)
[2021-07-12] MEDS: Loperamide HCl 2 MG CAP PO SCH ×3 (08:03→17:08)
[2021-07-12] MEDS: Heparin 5,000 UNITS/ML VIAL SC SCH ×3 (08:03→20:19)
[2021-07-12 09:23] VITALS: BMI 38.4
[2021-07-12] MEDS ORDERED: Diphenoxylate HCl/Atropine Tablet PO PRN (11:57)
[2021-07-12] MEDS: ALPRAZolam 0.5 MG TAB PO SCH (20:19)
[2021-07-13 04:57] LABS: #Basophils 0.1 thou/uL (0.0-0.2); #Eosinphils 0.2 thou/uL (0.0-0.7); #Lymphocytes 2.3 thou/uL (1.20-3.40); #Monocytes 0.4 thou/uL (0.11-0.59); %Basophils 1.4 % (0.0-1.0); %Eosinophils 4.7 % (0.0-10.0); %Monocytes 8.2 % (0.0-10.0); %Neutrophils 39.8 % (42.0-75.0); Hemoglobin 10.3 g/dL (12.0-16.0); Mean Corpuscular HGB CONC 33.3 g/dL (32.0-36.0); Mean Corpuscular Volume 93.3 fL (78.0-98.0); Mean Platelet Volume 8.4 fL (7.4-10.4); Platelet Count 218 thou/uL (130-400); RBC Distribution Width 13.6 % (11.5-14.5); Red Blood Cell (RBC) Count 3.32 mill/uL (4.20-5.40); White Blood Cell (WBC) Count 5.1 thou/uL (4.8-10.8)
[2021-07-13 05:25] LABS: Anion Gap 13 mmol/L (10-20); BUN (Urea Nitrogen) 14 mg/dL (9.8-20.1); Calc. Creatinine Clearance 107 mL/min (70-130); Carbon Dioxide 28 mmol/L (22-29); Chloride 101 mmol/L (98-107); Glucose 99 mg/dL (70-105); Potassium 3.7 mmol/L (3.5-5.1); Sodium 138 mmol/L (136-145)
[2021-07-13] MEDS ORDERED: ALPRAZolam 0.5 MG TAB PO SCH ×2 (09:00)
[2021-07-13] MEDS: Loperamide HCl 2 MG CAP PO SCH ×3 (12:23→17:35)
[2021-07-13] MEDS: Heparin 5,000 UNITS/ML VIAL SC SCH ×3 (12:24→20:56)
[2021-07-13] MEDS: Estradiol 1 MG TAB PO SCH (12:25)
[2021-07-13] MEDS: ALPRAZolam 0.5 MG TAB PO SCH (20:56)
[2021-07-13] MEDS: Ondansetron PF 4 MG/2 ML Vial IVP PRN (20:56)
[2021-07-14 05:36] LABS: #Eosinphils 0.2 thou/uL (0.0-0.7); #Monocytes 0.4 thou/uL (0.11-0.59); #Neutrophils 2.5 thou/uL (1.40-6.50); %Basophils 0.9 % (0.0-1.0); %Eosinophils 3.7 % (0.0-10.0); %Lymphocytes 39.3 % (21.0-51.0); %Monocytes 7.9 % (0.0-10.0); %Neutrophils 48.1 % (42.0-75.0); Hemoglobin 8.7 g/dL (12.0-16.0); Mean Corpuscular HGB CONC 34.3 g/dL (32.0-36.0); Mean Corpuscular Hemoglobin 31.6 pg (27.0-31.0); Mean Corpuscular Volume 92.1 fL (78.0-98.0); Mean Platelet Volume 8.3 fL (7.4-10.4); Platelet Count 193 thou/uL (130-400); RBC Distribution Width 13.5 % (11.5-14.5); Red Blood Cell (RBC) Count 2.76 mill/uL (4.20-5.40); White Blood Cell (WBC) Count 5.2 thou/uL (4.8-10.8)
[2021-07-14 05:55] LABS: Anion Gap 12 mmol/L (10-20); BUN (Urea Nitrogen) 14 mg/dL (9.8-20.1); Calc. Creatinine Clearance 125 mL/min (70-130); Carbon Dioxide 22 mmol/L (22-29); Chloride 109 mmol/L (98-107); Glucose 73 mg/dL (70-105); Sodium 140 mmol/L (136-145)
[2021-07-14] MEDS: Loperamide HCl 2 MG CAP PO SCH ×3 (07:50→16:29)
[2021-07-14] MEDS ORDERED: Potassium Chloride 20 MEQ TAB PO SCH ×2 (08:15→16:15)
[2021-07-14] MEDS ORDERED: Potassium Bicarbonate/Cit Ac 20 MEQ TAB PO SCH (08:30)
[2021-07-14] MEDS ORDERED: Sodium Chloride 0.9% 1,000 ML IV SCH (09:00)
[2021-07-14] MEDS: Estradiol 1 MG TAB PO SCH (10:17)
[2021-07-14] MEDS: Heparin 5,000 UNITS/ML VIAL SC SCH ×2 (10:17→15:10)
[2021-07-14 11:59] VITALS: BP 122/80; TEMP 97.8
[2021-07-14 13:46] LABS: SARS-CoV-2 PCR by NAA Not Detected (NotDetected)
[2021-07-14] MEDS: Ondansetron PF 4 MG/2 ML Vial IVP PRN (16:26)
[2021-07-14] MEDS: ALPRAZolam 0.5 MG TAB PO SCH (20:03)
== END 2021-07-14 20:05 | DRG 683 ==
LOC: ERS 18:20 → IMCU/EMU 19:43 → 2NO 07-08 17:43 → T4-A 07-13 20:12
PROVIDERS: ADMIT Internal Medicine; ATTEND Hospitalist
DX: N17.9 Acute kidney failure, unspecified (principal); E87.2 Acidosis; Z20.822 Contact with and (suspected) exposure to COVID-19; E86.1 Hypovolemia; E86.0 Dehydration; F41.9 Anxiety disorder, unspecified; F17.210 Nicotine dependence, cigarettes, uncomplicated; K21.9 Gastro-esophageal reflux disease without esophagitis; E66.01 Morbid (severe) obesity due to excess calories; N18.30 Chronic kidney disease, stage 3 unspecified; D63.1 Anemia in chronic kidney disease; I12.9 Hypertensive chronic kidney disease with stage 1 through stage 4 chronic kidney disease, or unspecified chronic kidney disease; Z79.891 Long term (current) use of opiate analgesic; Z79.899 Other long term (current) drug therapy; Z80.9 Family history of malignant neoplasm, unspecified; Z93.2 Ileostomy status; Z90.49 Acquired absence of other specified parts of digestive tract; Z90.710 Acquired absence of both cervix and uterus; Z68.38 Body mass index [BMI] 38.0-38.9, adult
CPT/HCPCS: 0240U; 36415; 74270; 80048; 80053; 83605; 85025; 87040; 93005; 96365; 96366; 96374; J1200; J1642; J1644; J2405; J2765; J7050; J7070; U0003; U0005

== ENCOUNTER 2021-09-15 12:30 | Inpatient (IN) | payer BC ==
[2021-09-15 12:07] VITALS: BMI 39.1
[2021-09-20] MEDS ORDERED: Acetaminophen 500 MG TAB ONE (09:11)
[2021-09-20] MEDS ORDERED: Ketorolac Tromethamine 30 MG/ML VIAL ONE (09:11)
[2021-09-20] MEDS ORDERED: Bupivacaine PF 0.5% 30 ML VIAL ONE (09:20)
[2021-09-20] MEDS ORDERED: Fentanyl 100 MCG/2 ML VIAL ONE ×2 (09:40→11:35)
[2021-09-20] MEDS ORDERED: Midazolam HCl 2 mg/2 ml Vial ONE (09:40)
[2021-09-20] MEDS ORDERED: EPINEPHrine 1 MG/ML AMP ONE (09:49)
[2021-09-20] MEDS ORDERED: cefOXitin 2 GM VIAL ONE ×2 (09:55→09:57)
[2021-09-20] MEDS ORDERED: Sodium Chloride 0.9% 100 ML ONE (09:57)
[2021-09-20] MEDS ORDERED: Ondansetron PF 4 MG/2 ML Vial IVP PRN ×2 (10:09→12:29)
[2021-09-20] MEDS ORDERED: Morphine 4 MG/ML VIAL SLOW IVP PRN ×3 (10:09→10:27)
[2021-09-20] MEDS ORDERED: hydrALAZINE 20 MG/ML VIAL SLOW IVP PRN (10:09)
[2021-09-20] MEDS ORDERED: Acetaminophen 500 MG TAB PO PRN (10:14)
[2021-09-20] MEDS ORDERED: PHENYLEPHRINE-NS 100 MCG/ML 10 ML SYRINGE ONE (10:17)
[2021-09-20] MEDS ORDERED: Dexamethasone 20 MG/5 ML VIAL ONE (10:17)
[2021-09-20] MEDS ORDERED: Lidocaine 1% PF 5 ML VIAL ONE (10:17)
[2021-09-20] MEDS ORDERED: Rocuronium Bromide 10 MG/ML (10ML VIAL) ONE (10:17)
[2021-09-20] MEDS ORDERED: Glycopyrrolate 0.2 MG/ML 5 ML SYRINGE ONE ×2 (10:17)
[2021-09-20] MEDS ORDERED: ePHEDrine 50 MG/ML VIAL ONE (10:17)
[2021-09-20] MEDS ORDERED: PROPOFOL 200 MG/20 ML VIAL ONE (10:17)
[2021-09-20] MEDS ORDERED: Ondansetron PF 4 MG/2 ML Vial ONE (10:17)
[2021-09-20] MEDS ORDERED: Promethazine HCl 25 MG/ML VIAL IM PRN ×2 (11:58→12:29)
[2021-09-20] MEDS ORDERED: Promethazine HCl 25 MG/ML VIAL IVPB PRN (11:58)
[2021-09-20] MEDS ORDERED: Meperidine HCl/PF 25 MG/ML VIAL SLOW IVP PRN (11:58)
[2021-09-20] MEDS ORDERED: Ondansetron HCl/PF 4 MG/2 ML Vial IVP PRN (11:58)
[2021-09-20] MEDS ORDERED: HYDROmorphone 2 MG/ML VIAL SLOW IVP PRN (11:58)
[2021-09-20] MEDS ORDERED: diphenhydrAMINE 25 MG CAP PO PRN (12:29)
[2021-09-20] MEDS ORDERED: fentaNYL Citrate/PF 2,000 MCG in Sodium Chloride 0.9% 60 ML IV PRN (12:29)
[2021-09-20] MEDS ORDERED: Naloxone HCl 0.4 mg/ml Vial IV PRN (12:29)
[2021-09-20] MEDS ORDERED: diphenhydrAMINE 50 MG/ML VIAL IM PRN (12:29)
[2021-09-20] MEDS ORDERED: Zolpidem Tartrate 5 MG TAB PO PRN (12:29)
[2021-09-20] MEDS ORDERED: diphenhydrAMINE 50 MG/ML VIAL IVP PRN (12:29)
[2021-09-20] MEDS ORDERED: Communication Order-Pharmacy FS SCH (12:30)
[2021-09-20] MEDS ORDERED: Labetalol HCl 100 MG/20 ML VIAL ONE (12:55)
[2021-09-20] MEDS: Ketorolac Tromethamine 30 MG/ML VIAL IVP SCH ×2 (14:31→17:52)
[2021-09-20] MEDS: D5 1/2 NS w/20 mEq KCL 1,000 ML IV SCH ×2 (14:45→18:07)
[2021-09-20] MEDS: cefOXitin 2 GM in Sodium Chloride 0.9% 100 ML IVPB SCH (18:34)
[2021-09-20] MEDS: Famotidine 20 MG TAB PO SCH (21:35)
[2021-09-20] MEDS: Enoxaparin Sodium 40 MG/0.4 ML SYRINGE SC SCH (21:36)
[2021-09-21] MEDS: Ketorolac Tromethamine 30 MG/ML VIAL IVP SCH ×5 (00:35→23:23)
[2021-09-21] MEDS: D5 1/2 NS w/20 mEq KCL 1,000 ML IV SCH (00:36)
[2021-09-21] MEDS: cefOXitin 2 GM in Sodium Chloride 0.9% 100 ML IVPB SCH (02:29)
[2021-09-21 08:09] LABS: #Eosinphils 0.2 thou/uL (0.0-0.7); #Lymphocytes 2.5 thou/uL (1.20-3.40); #Monocytes 0.9 thou/uL (0.11-0.59); #Neutrophils 7.9 thou/uL (1.40-6.50); %Basophils 0.3 % (0.0-1.0); %Eosinophils 1.8 % (0.0-10.0); %Lymphocytes 21.1 % (21.0-51.0); %Monocytes 8.2 % (0.0-10.0); %Neutrophils 68.6 % (42.0-75.0); Hemoglobin 11.6 g/dL (12.0-16.0); Mean Corpuscular HGB CONC 30.7 g/dL (32.0-36.0); Mean Corpuscular Hemoglobin 28.8 pg (27.0-31.0); Mean Corpuscular Volume 93.8 fL (78.0-98.0); Mean Platelet Volume 8.5 fL (7.4-10.4); Platelet Count 204 thou/uL (130-400); RBC Distribution Width 14.3 % (11.5-14.5); Red Blood Cell (RBC) Count 4.04 mill/uL (4.20-5.40); White Blood Cell (WBC) Count 11.6 thou/uL (4.8-10.8)
[2021-09-21] MEDS: Famotidine 20 MG TAB PO SCH ×2 (08:09→20:18)
[2021-09-21 08:38] LABS: Anion Gap 14 mmol/L (10-20); BUN (Urea Nitrogen) 12 mg/dL (9.8-20.1); Calc. Creatinine Clearance 146 mL/min (70-130); Calcium 8.3 mg/dL (7.8-10.44); Carbon Dioxide 17 mmol/L (22-29); Chloride 108 mmol/L (98-107); Glucose 105 mg/dL (70-105); Potassium 4.3 mmol/L (3.5-5.1); Sodium 135 mmol/L (136-145)
[2021-09-21] MEDS ORDERED: ALPRAZolam 0.25 MG TAB PO SCH (09:00)
[2021-09-21] MEDS ORDERED: HYDROcodone/Acetaminophen 7.5/325 mg Tablet PO PRN ×2 (10:11)
[2021-09-21] MEDS ORDERED: HYDROcodone/Acetaminophen 5/325 mg Tablet PO PRN ×2 (10:53)
[2021-09-21] MEDS ORDERED: Acetaminophen 500 MG TAB PO PRN (10:53)
[2021-09-21] MEDS ORDERED: traMADol HCl 50 MG TAB PO PRN (10:53)
[2021-09-21] MEDS ORDERED: Morphine 4 MG/ML VIAL SLOW IVP PRN (10:55)
[2021-09-21] MEDS: Enoxaparin Sodium 40 MG/0.4 ML SYRINGE SC SCH (20:18)
[2021-09-22] MEDS: Ketorolac Tromethamine 30 MG/ML VIAL IVP SCH (05:39)
[2021-09-22 07:56] VITALS: BP 131/70; TEMP 98.3
[2021-09-22] MEDS: Famotidine 20 MG TAB PO SCH (08:47)
== END 2021-09-22 11:42 | disposition home or self-care (01) | DRG 331 ==
LOC: SURG A 09-20 08:44
PROVIDERS: ADMIT Specialist; ATTEND Specialist
PROC: 0DBB0ZZ Excision of Ileum, Open Approach (ICD-10-PCS; principal; 2021-09-20)
DX: Z43.2 Encounter for attention to ileostomy (principal); Z20.822 Contact with and (suspected) exposure to COVID-19; E86.0 Dehydration; E66.01 Morbid (severe) obesity due to excess calories; Z68.39 Body mass index [BMI] 39.0-39.9, adult; Z28.21 Immunization not carried out because of patient refusal; Z90.49 Acquired absence of other specified parts of digestive tract; Z90.89 Acquired absence of other organs
CPT/HCPCS: 36415; 80048; 85025; 88305; J0171; J0694; J1100; J1650; J1885; J2250; J2405; J2704; J3010; J3480; J3490; S0020